=== PATIENT | female | born 1990 | race Caucasian/White ===

== ENCOUNTER 2016-12-11 19:15 | Outpatient (CLI) | payer OTHER ==
[2016-12-11 20:00] VITALS: BP 127/68; PULSE 95; RESP 17; TEMP 97.8
--- NOTE | 2017-01-17 13:12 | P.MSEPDOC ---
Presenting Problems - Arrival Data Date of Arrival on Unit: 12/11/16 Time of Arrival on Unit: 19:15 Mode of Transport: Ambulatory - Complaint OB-Reason for Admission/Chief Complaint: Rule Out SROM Medical History - Information : 2 Para: 1 Term: 1 : 0 Abortions: Spontaneous or Elective: 0 Number of Living Children: 1 - Gestational Age Expected Date of Delivery: 12/24/16 Gestational Age by RICA (wks/days): 43 Weeks and 3 Days - History Complications: GBS+ Review of Systems - Review of Systems Constitutional: No problems Breast: No problems ENT: No problems Cardiovascular: No problems Respiratory: No problems Gastrointestinal: No problems Genitourinary: No problems Musculoskeletal: No problems Neurological: No problems Skin: No problems Comment: History of SVT and successful ablation Vital Signs - Temperature Temperature: 97.8 F Temperature Source: Temporal Artery Scan - Pulse Right Pulse Oximetery Pulse Rate: 95 Pulse Assessment Method: Pulse Oximetry - Respirations Respiratory Rate: 17 Oxygen Delivery Method: Room Air O2 Sat by Pulse Oximetry: 98 - Blood Pressure Right Arm Blood Pressure: 127/68 Blood Pressure Mean: 87 Blood Pressure Source: Automatic Cuff Medical Screen Scoring (Pre) - Cervical Exam Dilation: 1-3 cm = 1 - Uterine Contractions Frequency: > or = 36 weeks =2 Duration: N/A Intensity: N/A - Maternal Vital Signs Maternal Temperature: N/A Maternal Blood Pressure: N/A Signs of Preeclampsia: N/A Maternal Respirations: N/A - Maternal Trauma Maternal Trauma: N/A - Assessment Baseline FHR: 145 Heart Rate - NICHD Category: Category I (Normal) = 0 NST: Reactive Position: N/A Station: N/A - Total Score Total Score (Pre): 3 - Level of Risk Level of Risk: Low (0-5) Physician Notification (Pre) - Physician Notified Physician Notified Date: 12/11/16 Physician Notified Time: 19:44 Physician/Practitioner Notifed:: Dr Griffiths Spoke With: telephone New Order Received: Yes (discharge) Disposition - Disposition OB Disposition: Discharge to home Discharge Date: 12/11/16 Discharge Time: 19:53 I agree with the RN Medical Screening Exam: Yes Risk & Benefit of care provided described in d/c instruction: Yes Diagnosis: related conditions
== END 2016-12-11 19:53 | disposition home or self-care (01) ==
LOC: FBPOP 19:15
PROVIDERS: ATTEND Obstetrics & Gynecology
DX: O26.93 Pregnancy related conditions, unspecified, third trimester (principal); Z3A.49 Greater than 42 weeks gestation of pregnancy
CPT/HCPCS: 59025; 84112; 99213

== ENCOUNTER 2016-12-18 05:53 | Inpatient (IN) | payer OTHER ==
[2016-12-18] MEDS ORDERED: TERBUTALINE 1 MG/ML VIAL SQ PRN (06:05)
[2016-12-18] MEDS ORDERED: LIDOCAINE 1% (PF) 10 MG/ML (30 ML SDV) SQ PRN (06:05)
[2016-12-18] MEDS ORDERED: CARBOPROST TROMETHAMINE 250 MCG/ML 1 ML AMP IM PRN (06:05)
[2016-12-18] MEDS ORDERED: METHYLERGONOVINE 0.2 MG/ML 1 ML AMP IM PRN (06:05)
[2016-12-18] MEDS ORDERED: PENICILLIN G POTASSIUM 5,000,000 UNIT in DEXTROSE 5% IN WATER 100 ML IV STA ×2 (06:05)
[2016-12-18] MEDS ORDERED: OXYTOCIN 10 UNIT/ML 1 ML VIAL IM PRN (06:05)
[2016-12-18] MEDS ORDERED: OXYTOCIN 20 UNITS/1000 ML NS 1,000 ML IV SCH (06:15)
[2016-12-18] MEDS: LACTATED RINGERS 1,000 ML IV SCH ×3 (06:17→23:34)
[2016-12-18 06:30] LABS: CH 31.6; CHCM 33.7; Mean Platelet Volume 8.6; Monocytes % (A) 3 %
[2016-12-18 06:36] LABS: Basophils # (A) 0.1 k/uL (0-0.2); Basophils % (A) 0 %; Eosinophils # (A) 0.2 k/uL (0-0.7); Eosinophils % (A) 1 %; HCT 35.5 % (34.0-46.0); HDW 2.41; HGB 11.9 gm/dL (11.4-16.0); Luc # (Auto) 0.26; Luc % (Auto) 2; Lymphocytes # (A) 2.4 k/uL (1.0-4.8); Lymphocytes % (A) 18 %; MCH 31.5 pg (25.0-35.0); MCHC 33.4 g/dL (31.0-37.0); MCV 94.3 fL (80.0-100.0); Monocytes # (A) 0.4 k/uL (0-1.0); Neutrophils % (A) 75 %; RBC 3.77 m/uL (3.80-5.40); RDW 14.3 % (11.5-15.5); WBC 13.4 k/uL (3.8-10.6); WBC (Perox) 13.93
--- NOTE | 2016-12-18 06:55 | P.HPOB ---
History of Present Illness H&P Date: 12/18/16 Chief Complaint: Here for elective induction with favorable cervix This is a 26-year-old white female 2 para 1001 EDC 12/24/2016 at 39 weeks gestation. Patient presents today for induction with favorable multiparous cervix. She has been having uterine contractions spontaneously of mild intensity. She denies fluid leakage or vaginal bleeding. Past medical history is significant for SVT. Past surgical history cardiac ablation 2004, tonsillectomy and wisdom teeth extracted. ALLERGIES none known. Current medications vitamins daily. Social history patient is , she is a nonsmoker, she denies alcohol or drug use. Obstetric history blood type is A+, rubella status immune. VDRL testing, hepatitis B surface antigen, HIV testing, urine culture all negative. Gonorrhea and chlamydia cultures negative. One-hour Glucola 86. Group B strep cultures positive. On exam this is a pleasant white female, she is 5 foot 5-1/2 inches, approximately 160 pounds. Vital signs are stable and she is afebrile. The general physical exam is within normal limits. The cervix is 4-5 cm dilated, 70 % effaced, -2 station, vertex presentation, anterior and soft. Artificial amniorrhexis reveals clear fluid. heart rate is in the 140s with frequent accelerations, consistent with reactive NST. Impression: 39 week intrauterine , favorable multiparous cervix, here for elective induction of labor. All signs reassuring. Group B strep cultures positive. Plan: Penicillin G per hospital protocol. Oxytocin per hospital protocol. Close maternal and surveillance. Anticipate normal spontaneous vaginal delivery. Patient has been counseled and is aware of her options for analgesia. Review of Systems Negative except as noted in HPI. I Past Medical History Past Medical History: Coronary Artery Disease (CAD), Supraventricular Tachycardia (SVT) Additional Past Medical History / Comment(s): svt resolved "years ago" through ablation History of Any Multi-Drug Resistant Organisms: None Reported Past Surgical History: Cardiac Ablation, Tonsillectomy Additional Past Surgical History / Comment(s): wisdom teeth Past Anesthesia/Blood Transfusion Reactions: No Reported Reaction Past Psychological History: Anxiety, Depression Additional Psychological History / Comment(s): resolved per pt Smoking Status: Never smoker Past Alcohol Use History: None Reported Past Drug Use History: None Reported - Past Family History Sister(s) Family Medical History: Asthma Mother Family Medical History: No Reported History Medications and Allergies Home Medications Medication Instructions Recorded Confirmed Type Gtn-Oiei-Homsh Acid 1 each PO DAILY 10/31/13 12/18/16 History [-U Capsule] Allergies Allergy/AdvReac Type Severity Reaction Status Date / Time shellfish derived Allergy Intermediate Swelling Verified 12/18/16 06:04 hydrocodone bitartrate AdvReac Intermediate Nausea & Verified 12/18/16 06:04 [From Vicodin] Vomiting Exam - Vital Signs Vital signs: Vital Signs Temp Pulse Resp BP 12/18/16 06:31 98.0 F 72 16 128/69 Intake and Output 12/17/16 12/17/16 12/18/16 14:59 22:59 06:59 Other: Weight 78.471 kg Patient Weight 12/18/16 06:59 Weight 78.471 kg Please see dictation under HPI. Results Result Diagrams: 12/18/16 06:15 Abnormal Lab Results - Last 24 Hours (Table) 12/18/16 Range/Units 06:15 WBC 13.4 H (3.8-10.6) k/uL RBC 3.77 L (3.80-5.40) m/uL Neutrophils # 10.0 H (1.3-7.7) k/uL Assessment and Plan Plan: Penicillin G per hospital protocol. Oxytocin per hospital protocol. Close maternal and surveillance. Anticipate normal spontaneous vaginal delivery. Time with Patient: Less than 30
[2016-12-18] MEDS ORDERED: BUPIVACAINE (PF) 0.25% 30 ML VIAL ONE (08:44)
[2016-12-18] MEDS ORDERED: fentaNYL (PF) 50 MCG/ML 5 ML AMP ONE (08:44)
[2016-12-18] MEDS ORDERED: SODIUM CHLORIDE 0.9% 100 ML BAG ONE (08:44)
[2016-12-18] MEDS ORDERED: BUPIVACAINE (PF) 0.25% 25 ML, fentaNYL (PF) 200 MCG in SODIUM CHLORIDE 0.9% 71 ML EPIDURAL ONE (09:17)
--- NOTE | 2016-12-18 11:18 | P.PROBDLV ---
Vaginal Delivery Note - . Vaginal Delivery Note: This is a 26-year-old white female 2 para 1001 EDC 12/24/2016 at 39 and one sevenths weeks' gestation. Patient presented for induction with favorable multiparous cervix, she was having uterine contractions upon admission spontaneously. is remarkable for positive group B strep cultures. Blood type is A+, rubella status immune. Please see my dictated history and physical for details. Patient was admitted and artificial amniorrhexis revealed clear fluid. Oxytocin was started and titrated per hospital protocol. She requested and received an epidural without difficulties. She progressed well through the first stage of labor and became completely dilated at 1034 hrs. She began the second stage of labor at that time. Smitley the perineal body was prepped and draped in the usual sterile fashion. Infant's head delivered occiput anterior and he restituted accordingly. There was no nuchal cord noted. The right or anterior shoulder was gently delivered from underneath the pubic symphysis at which time the oropharynx, nasopharynx and external nares were all bulb suctioned on the perineal body. Patient was officially delivered of a liveborn male at 05/25/2000 hours. Umbilical cord was doubly clamped and ligated, he was handed to waiting nurses for evaluation where scores of 9 and 9 at one and 5 minutes respectively were given. The placenta delivered spontaneously, it was inspected and noted to be intact with trivascular cord at 05/25/2003 hours. At this time the uterus was massaged. Inspection of the cervix, vagina, perineum, periurethral and perirectal areas revealed a second-degree midline perineal laceration. This was injected with lidocaine and repaired in the usual fashion using 3-0 Vicryl suture. There was a small right periclitoral laceration that was injected with lidocaine and repaired with a single [id number] suture of 3-0 Vicryl. Fundus is firm and in the midline, symmetric and 18 week size upon completion of delivery. Estimated blood loss 300 mL's. All sponge needle and enhancement counts are correct at the end of the procedure. Infant weighed 3665 g or 8 lbs. 1 oz. Patient and her family are allowed to begin the bonding experience in the LDR. They are declining option for circumcision.
[2016-12-18] MEDS ORDERED: diphenhydrAMINE 25 MG CAP PO PRN (11:19)
[2016-12-18] MEDS ORDERED: ZOLPIDEM 5 MG TAB PO PRN (11:19)
[2016-12-18] MEDS ORDERED: SIMETHICONE 80 MG CHEWABLE PO PRN (11:19)
[2016-12-18] MEDS ORDERED: LANOLIN CREAM 5 GM TUBE TOPICAL PRN (11:19)
[2016-12-18] MEDS ORDERED: HYDROCORTISONE 2.5% RECTAL CREAM 30 GM TUBE RECTAL PRN (11:19)
[2016-12-18] MEDS ORDERED: diphenhydrAMINE 50 MG/ML 1 ML VIAL IVP PRN ×2 (11:19)
[2016-12-18] MEDS ORDERED: WITCH HAZEL 1 EACH MED..PAD TOPICAL PRN (11:19)
[2016-12-18] MEDS ORDERED: ACETAMINOPHEN TAB 325 MG TAB PO PRN (11:19)
[2016-12-18] MEDS ORDERED: diphenhydrAMINE 50 MG CAP PO PRN (11:19)
[2016-12-18] MEDS ORDERED: BENZOCAINE/MENTHOL SPRAY 1 GM/SPRAY AEROSOL TOPICAL PRN (11:19)
[2016-12-18] MEDS: IBUPROFEN 600 MG TAB PO PRN (17:04)
[2016-12-18] MEDS: PENICILLIN G POTASSIUM 2,500,000 UNIT in DEXTROSE 5% IN WATER 100 ML IV SCH ×4 (19:44→23:34)
[2016-12-18] MEDS: Acetaminophen-Codeine 300-30mg TAB PO PRN (19:45)
[2016-12-18] MEDS: SENNOSIDES-DOCUSATE SODIUM 1 EACH TAB PO SCH (19:45)
[2016-12-19] MEDS: Acetaminophen-Codeine 300-30mg TAB PO PRN ×4 (03:26→20:59)
--- NOTE | 2016-12-19 06:03 | P.PN ---
Subjective Principal diagnosis: day #1 Slept well. Minimal lochia rubra. Pain well tolerated. Objective - Vital Signs Vital signs: Vital Signs Temp 98.1 F 12/18/16 23:32 Pulse 78 12/18/16 23:32 Resp 16 12/18/16 23:32 BP 105/52 12/18/16 23:32 Pulse Ox Intake & Output 12/18/16 12/18/16 12/19/16 06:59 18:59 06:59 Intake Total 1000.0 1200 Output Total 250 Balance 750.0 1200 Weight 78.471 kg Intake: Intake, IV Titration 1000.0 Amount Oxytocin 20 Units/1000 ml 1000.0 Ns 1,000 ml @ 1 MILLIUNIT/MIN 3 mls/hr IV .Q24H DEVAN Rx#:[id number] Oral 1200 Output: Urine 250 Other: # Voids 2 3 - Constitutional General appearance: Present: average body habitus, cooperative - EENT Eyes: Present: PERRLA ENT: Present: hearing grossly normal - Neck Neck: Present: normal ROM Thyroid: bilateral: normal size - Respiratory Respiratory: bilateral: CTA - Cardiovascular Rhythm: regular - Gastrointestinal General gastrointestinal: Present: normal bowel sounds - Genitourinary Genitourinary Comment(s): Fundus firm, midline, symmetric, nontender, 18 week size. Perineal body clean and dry. - Integumentary Integumentary: Present: normal - Neurologic Neurologic: Present: CNII-XII intact - Musculoskeletal Musculoskeletal: Present: gait normal, strength equal bilaterally - Psychiatric Psychiatric: Present: A&O x's 3, appropriate affect, intact judgment & insight - Labs CBC & Chem 7: 12/18/16 06:15 Labs: Abnormal Lab Results - Last 24 Hours (Table) 12/18/16 Range/Units 06:15 WBC 13.4 H (3.8-10.6) k/uL RBC 3.77 L (3.80-5.40) m/uL Neutrophils # 10.0 H (1.3-7.7) k/uL Assessment and Plan Plan: Infant to remain for antibiotics through the day. Likely discharge home tomorrow. Continue care. Prescription for breast pump provided per patient's request. Time with Patient: Less than 30
[2016-12-19] MEDS: SENNOSIDES-DOCUSATE SODIUM 1 EACH TAB PO SCH ×2 (08:14→21:03)
[2016-12-20 08:35] VITALS: BP 102/69; PULSE 69; RESP 16; TEMP 98
[2016-12-20] MEDS: SENNOSIDES-DOCUSATE SODIUM 1 EACH TAB PO SCH (08:36)
[2016-12-20] MEDS: IBUPROFEN 600 MG TAB PO PRN (08:36)
--- NOTE | 2016-12-20 09:09 | P.DS ---
Providers Date of admission: 12/18/16 05:53 Expected date of discharge: 12/20/16 Attending physician: Rosy Moreno Primary care physician: Stated None - Discharge Diagnosis(es) (1) Normal spontaneous vaginal delivery Current Visit: Yes Status: Acute Hospital Course: The patient is a 26-year-old 2 para 1001 admitted at 39 weeks by good dating parameters. She is admitted for induction with a favorable cervix. Her was uncomplicated though she was known to be group B strep positive. On labor and delivery, she had penicillin started for group B strep prophylaxis as well as Pitocin. She underwent artificial rupture of membranes of clear fluid. She made fairly rapid progress through the active phase of labor to complete and then pushed to a normal spontaneous vaginal delivery of a viable 8 lbs. 1 oz. baby boy with Apgars of 9 at 1 minute and 9 at 5 minutes. The patient's course was unremarkable with vital signs remaining stable and her temperature was afebrile throughout. The infant, was asked to remain in the hospital for 48 hours as only one dose of antibiotics was delivered prior to delivery. The patient and infant were deemed stable for discharge on day #2 was discharged home to follow-up in the office in 6 weeks' time routinely. Discharge instructions included calling for any significantly increased bleeding or foul-smelling lochia, significantly increased fever or abdominal pain, perineal complaints, breast complaints, or anything else that concerned her. She was additionally instructed to have nothing in the vagina for at least 6 weeks time to include intercourse. She understood her instructions and agrees to follow up as noted above. Discharge medications included continued vitamins as she has opted to breast-feed. She otherwise was to use [id number] analgesic pain medications as needed. She was provided a prescription for a dual electric breast pump for as needed use. Maternal blood type is A+ and rubella status is immune. Procedures: #1. Pitocin induction #2. Antibiotic prophylaxis #3. Artificial rupture of membranes #4. Epidural analgesia #5. Normal spontaneous vaginal delivery #. Repair of periclitoral laceration Patient Condition at Discharge: Good Plan - Discharge Summary New Discharge Prescriptions: No Action Gsn-Tyex-Cbaqc Acid [-U Capsule] 1 each PO DAILY Discharge Medication List Bkz-Gupl-Ufjph Acid [-U Capsule] 1 each PO DAILY 10/31/13 [ History] Follow up Appointment(s)/Referral(s): Rosy Moreno MD [STAFF PHYSICIAN] - 6 Weeks Discharge Disposition: HOME SELF-CARE
== END 2016-12-20 10:30 | disposition home or self-care (01) | DRG 775 ==
LOC: 4FBP 05:53
PROVIDERS: ADMIT Obstetrics & Gynecology; ATTEND Obstetrics & Gynecology
PROC: 10907ZC Drainage of Amniotic Fluid, Therapeutic from Products of Conception, Via Natural or Artificial Opening (ICD-10-PCS; principal; 2016-12-18)
PROC: 0KQM0ZZ Repair Perineum Muscle, Open Approach (ICD-10-PCS; principal; 2016-12-18)
PROC: 10E0XZZ Delivery of Products of Conception, External Approach (ICD-10-PCS; principal; 2016-12-18)
PROC: 3E033VJ Introduction of Other Hormone into Peripheral Vein, Percutaneous Approach (ICD-10-PCS; principal; 2016-12-18)
PROC: 3E0R3CZ (ICD-10-PCS; principal; 2016-12-18)
PROC: 00HU33Z Insertion of Infusion Device into Spinal Canal, Percutaneous Approach (ICD-10-PCS; principal; 2016-12-18)
DX: O99.824 Streptococcus B carrier state complicating childbirth (principal); Z37.0 Single live birth; Z3A.39 39 weeks gestation of pregnancy; O70.1 Second degree perineal laceration during delivery
CPT/HCPCS: 85025; 88307